=== PATIENT | male | born 1990 | race Hispanic/Latino ===

== ENCOUNTER 2022-01-12 21:52 | Emergency (ER) | payer MEDICAID, OTHER ==
[~2022-01-12] VITALS: Ht 170.2 cm; Wt 89.8 kg
[2022-01-12] MEDS ORDERED: 0.9%NACL 1000ML 1,000 ML IV ONE (22:47)
[2022-01-12] MEDS ORDERED: AZITHROMYCIN 250 MG TABLET PO ONE (23:00)
[2022-01-12] MEDS ORDERED: AMOX/CLAV 875/125MG TAB PO ONE (23:00)
[2022-01-12] MEDS ORDERED: ACETAMINOPHEN WITH CODEINE 1 TAB TAB PO ONE (23:00)
[2022-01-12] MEDS ORDERED: 0.9%NACL 1000ML 1,000 ML IV SCH (23:00)
[2022-01-12] MEDS ORDERED: ALBUTEROL 0.083% 2.5 MG/3 ML INH IH ONE (23:00)
[2022-01-12] MEDS ORDERED: IPRATROPIUM/ALBUTEROL SULFATE 3 ML SOLUTION IH ONE (23:00)
[2022-01-12 23:23] VITALS: BP 124/80
[2022-01-12] MEDS ORDERED: D-ME1POW16 PO (23:25)
[2022-01-12] MEDS ORDERED: ALBU8.5H8 IH (23:25)
[2022-01-12] MEDS ORDERED: AMOX1TAB16 PO (23:25)
== END 2022-01-12 23:49 | disposition home or self-care (01) ==
LOC: EDH 21:52
DX: J40 Bronchitis, not specified as acute or chronic (principal); E86.0 Dehydration; F17.210 Nicotine dependence, cigarettes, uncomplicated; Z88.6 Allergy status to analgesic agent; Z79.899 Other long term (current) drug therapy
CPT/HCPCS: 71045; 87635; 87804 ×2; 87880; 94640 ×2; 96360; 99284; C9803; J7030